=== PATIENT | female | born 1995 | race Two or more races ===

== ENCOUNTER 2020-11-21 13:15 | Outpatient (CLI) | payer OTHER | END 2020-11-21 14:55 | disposition home or self-care (01) | LOC: OFIC 805 13:15 | PROVIDERS: ATTEND Otolaryngology Otology & Neurotology | DX: H60.8X1 Other otitis externa, right ear (principal); H92.01 Otalgia, right ear; H61.21 Impacted cerumen, right ear ==

== ENCOUNTER 2020-11-29 12:27 | Outpatient (CLI) | payer OTHER | END 2020-11-29 13:32 | disposition home or self-care (01) | LOC: OFIC 805 12:27 | PROVIDERS: ATTEND Otolaryngology Otology & Neurotology | DX: H60.8X1 Other otitis externa, right ear (principal); H92.01 Otalgia, right ear; H61.21 Impacted cerumen, right ear ==

== ENCOUNTER 2023-07-30 08:14 | Outpatient (CLI) | payer OTHER | END 2023-07-30 08:33 | disposition home or self-care (01) | LOC: SONOGRAMA 08:14 | PROVIDERS: ATTEND Obstetrics & Gynecology | DX: N93.8 Other specified abnormal uterine and vaginal bleeding (principal) ==